=== PATIENT | female | born 2000 | race American Indian/Alaskan Native ===

== ENCOUNTER 2020-08-24 14:03 | Outpatient (CLI) | payer MEDICAID ==
[2020-08-24] MEDS ORDERED: LACTATED RINGERS 500 ML IV ONE (15:10)
[2020-08-24 15:35] LABS: Basophils % (Auto) 0.4 % (0.0-1.8); Eosinophils # (Auto) 0.1 K/mm3 (0.0-0.4); Eosinophils % (Auto) 1.3 % (0.0-4.3); Hematocrit 33.6 % (30.3-42.9); Lymphocytes # (Auto) 2.1 K/mm3 (1.2-5.4); Lymphocytes % (Auto) 24.6 % (13.4-35.0); Mean Corpuscular HGB Conc 33 % (30-34); Mean Corpuscular Volume 84 fl (79-97); Monocytes # (Auto) 0.8 K/mm3 (0.0-0.8); Monocytes % (Auto) 9.5 % (0.0-7.3); Platelet Count 286 K/mm3 (140-440); Red Cell Distribution Width 14.3 % (13.2-15.2)
[2020-08-24 15:36] LABS: Bacteria,Urine 1+ /HPF (Negative); Bilirubin,Urine NEG (Negative); Blood,Urine NEG (Negative); Color,Urine Amber (Yellow); Mucus,Urine 3+ /HPF; Urobilinogen,Urine < 2.0 mg/dL (<2.0)
[2020-08-24 16:12] LABS: Alanine Aminotransferase 6 units/L (7-56); Albumin 3.6 g/dL (3.9-5); Blood Urea Nitrogen 5 mg/dL (7-17); Calcium 9.2 mg/dL (8.4-10.2); Hemolysis Index 5
[2020-08-24 16:13] LABS: BUN/Creatinine Ratio 10
[2020-08-24] MEDS ORDERED: ceFAZolin/STERILE WATER 2 GM/20 ML SYRINGE IV NR (17:00)
[2020-08-24 17:07] VITALS: BP 92/55
[2020-08-24] MEDS ORDERED: LACTATED RINGERS 1,000 ML IV ONE (17:31)
== END 2020-08-24 17:58 | disposition home or self-care (01) ==
LOC: TRG 14:03 → APU 14:10 → TRG 17:58
PROVIDERS: ATTEND Obstetrics & Gynecology
DX: O16.3 Unspecified maternal hypertension, third trimester (principal); Z3A.29 29 weeks gestation of pregnancy
CPT/HCPCS: 36415; 59025; 80053; 81001; 85025; 87076; 87086; 87186; 96365; 96366; J0690; J7120; 96360; 96374

== ENCOUNTER 2020-10-07 15:37 | Observation (INO) | payer MEDICAID ==
[2020-10-07] MEDS ORDERED: LACTATED RINGERS 500 ML IV ONE (16:01)
[2020-10-07] MEDS ORDERED: LACTATED RINGERS 1,000 ML IV ONE (16:33)
[2020-10-07 16:44] LABS: Basophils # (Auto) 0.1 K/mm3 (0.0-0.1); Basophils % (Auto) 0.8 % (0.0-1.8); Eosinophils # (Auto) 0.1 K/mm3 (0.0-0.4); Eosinophils % (Auto) 0.7 % (0.0-4.3); Hematocrit 32.8 % (30.3-42.9); Hemoglobin 10.9 gm/dl (10.1-14.3); Lymphocytes # (Auto) 1.9 K/mm3 (1.2-5.4); Lymphocytes % (Auto) 18.5 % (13.4-35.0); Mean Corpuscular HGB Conc 33 % (30-34); Mean Corpuscular Volume 79 fl (79-97); Monocytes # (Auto) 1.2 K/mm3 (0.0-0.8); Monocytes % (Auto) 11.5 % (0.0-7.3); Platelet Count 307 K/mm3 (140-440); Red Blood Count 4.14 M/mm3 (3.65-5.03); Red Cell Distribution Width 14.9 % (13.2-15.2)
[2020-10-07 17:01] LABS: Alanine Aminotransferase 6 units/L (7-56); Albumin 3.8 g/dL (3.9-5); BUN/Creatinine Ratio 8; Blood Urea Nitrogen 4 mg/dL (7-17); Calcium 9.3 mg/dL (8.4-10.2); Hemolysis Index 1
[2020-10-07 18:01] LABS: Bilirubin,Urine NEG (Negative); Blood,Urine MOD (Negative); Color,Urine Yellow (Yellow); Mucus,Urine FEW /HPF; Urobilinogen,Urine < 2.0 mg/dL (<2.0)
--- NOTE | 2020-10-07 18:39 | Ultrasound Report ---
ULTRASOUND OBSTETRIC LIMITED ULTRASOUND BIOPHYSICAL PROFILE INDICATION / CLINICAL INFORMATION: BPP. Clinical Gestational Age (GA): 35.3 weeks.days COMPARISON: None available. FINDINGS: BREATHING MOVEMENT = 0 GROSS BODY MOVEMENT = 2 TONE = 2 QUALITATIVE AMNIOTIC FLUID VOLUME = 2 TOTAL BIOPHYSICAL SCORE = 8/8 HEART RATE (beats per minute): 142 AMNIOTIC FLUID INDEX (cm) = 7.5 (normal = 7-24 cm) PRESENTATION: Cephalic. ADDITIONAL FINDINGS: Right lateral placenta with grade 1 appearance. IMPRESSION: 1. Biophysical Score = 6/8. Recommend close continued follow-up and further evaluation as shady bellamy. 2. Additional findings as above. Signer Name: Levon Marrero MD Signed: 10/07/2020 6:35 PM Workstation Name: [id number]
--- NOTE | 2020-10-07 18:40 | Ultrasound Report ---
ULTRASOUND OBSTETRIC LIMITED ULTRASOUND BIOPHYSICAL PROFILE INDICATION / CLINICAL INFORMATION: BPP. Clinical Gestational Age (GA): 35.3 weeks.days COMPARISON: None available. FINDINGS: BREATHING MOVEMENT = 0 GROSS BODY MOVEMENT = 2 TONE = 2 QUALITATIVE AMNIOTIC FLUID VOLUME = 2 TOTAL BIOPHYSICAL SCORE = 8/8 HEART RATE (beats per minute): 142 AMNIOTIC FLUID INDEX (cm) = 7.5 (normal = 7-24 cm) PRESENTATION: Cephalic. ADDITIONAL FINDINGS: Right lateral placenta with grade 1 appearance. IMPRESSION: 1. Biophysical Score = 6/8. Recommend close continued follow-up and further evaluation as shady bellamy. 2. Additional findings as above. Signer Name: Levon Marrero MD Signed: 10/07/2020 6:36 PM Workstation Name: [id number]
[2020-10-07] MEDS ORDERED: DOCUSATE SODIUM 100 MG CAP PO PRN (18:50)
[2020-10-07] MEDS ORDERED: ACETAMINOPHEN 325 MG TAB PO PRN (18:50)
--- NOTE | 2020-10-07 19:03 | History and Physical Report ---
History of Present Illness Date of examination: 10/07/20 Date of admission: 10/07/2020 Chief complaint: Pelvic pain History of present illness: 19 year old female presents to L&D with complaint of pelvic pain starting today, felt in lower pelvis and right lower back. Patient denies contractions. She denies falls or abdominal trauma. She denies urinary frequency or dysuria or leaking of water or vaginal bleeding. No fever, chills, malaise, or N/V. Denies any known exposure to coronavirus. Patient reports active movement. Patient states she receives care at [facility] but no records are available. EDC 11/08/2020 (self reported by patient). Patient denies any complications during the . 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: chlamydia (history last year, treated and cured), trichomonas (history of last year, treated and cured) Family/Genetic History: none Social history: no significant social history - Obstetrical History Expected Date of Delivery: 11/08/20 Actual Gestation: 35 Week(s) 3 Day(s) : 2 Para: 1 Hx # Term Pregnancies: 1 Number of Pregnancies: 0 Spontaneous Abortions: 0 Induced : 0 Number of Living Children: 1 Medications and Allergies Allergies Allergy/AdvReac Type Severity Reaction Status Date / Time No Known Allergies Allergy Unverified 08/24/20 15:10 Active Meds: Active Medications Acetaminophen (Acetaminophen 325 Mg Tab) 650 mg PO Q4H PRN PRN Reason: Pain MILD(1-3)/Fever >100.5/PORTILLO Docusate Sodium (Docusate Sodium 100 Mg Cap) 100 mg PO Q12H PRN PRN Reason: Constipation Ceftriaxone Sodium (Rocephin/Ns 1 Gm/50 Ml) 1 gm in 50 mls @ 100 mls/hr IV Q24H STACY; Protocol Multivitamins/Iron/Calcium ( Nqp79-Gm Fumarate-Folic Acid Vit Tab) 1 each PO QDAY STACY Review of Systems All systems: negative (lower abdominal pain and lower back pain) - Vital Signs Vital signs: Vital Signs Pulse BP 127 H 125/70 10/07/20 16:00 10/07/20 16:00 Temp Pulse Resp BP Pulse Ox 99 F 112 H 125/70 99 10/07/20 16:02 10/07/20 17:21 10/07/20 16:00 10/07/20 17:21 Urinalysis slightly cloudy and positive for ketones, protein, and 26 wbc/hpf. BPP 6/8 (2 off for breathing); MEAGAN 7.5 cm. - Physical Exam Abdomen: Positive: normal appearance, soft. Negative: distention, tenderness, guarding, rigidity Genitourinary (Female): Positive: normal external genitalia, normal perenium. Negative: perineal/vulvar lesions Vagina: Positive: normal moisture Uterus: Positive: enlarged. Negative: tender Anus/Rectum: Positive: normal perianal skin Extremities: Positive: normal. Negative: tenderness, edema - Obstetrical FHR: category 1 Uterine Contraction Monitor Mode: External Cervical Dilatation: 0 Cervical Effacement Percentage: 0 station: high Uterine Contraction Pattern: Absent Results Result Diagrams: 10/07/20 16:27 10/07/20 16:27 Abnormal lab results 10/07/20 10/07/20 10/07/20 Range/Units 16:27 16:27 Unknown MCH 26 L (28-32) pg [place] % (Auto) 11.5 H (0.0-7.3) % [place] # (Auto) 1.2 H (0.0-0.8) K/mm3 BUN 4 L (7-17) mg/dL Creatinine 0.5 L (0.6-1.2) mg/dL ALT 6 L (7-56) units/L Alkaline Phosphatase 151 H (35-129) units/L Albumin 3.8 L (3.9-5) g/dL Urine WBC (Auto) 26.0 H (0.0-6.0) /HPF All other labs normal. Assessment and Plan A: at 35 weeks, 3 days gestation. Pelvic pain. UTI. BPP 6/8 with borderline low MEAGAN. Ketonuria/dehydration. No records available. P: Admit for observation. Continuous EFM. IV hydration. IV Rocephin. Repeat BPP and MEAGAN tomorrow morning. Urine culture; coronavirus test. Request records.
[2020-10-07] MEDS ORDERED: cefTRIAXone/NS 1 GM/50 ML 1 GM/50 ML BAG IV SCH (20:00)
[2020-10-07 23:46] LABS: Amphetamine Screen,Urine PRESUMPTIVE NEGATIVE; Benzodiazepines Screen,Urine PRESUMPTIVE NEGATIVE; Cannabinoid Screen,Urine PRESUMPTIVE POSITIVE; Cocaine Screen,Urine PRESUMPTIVE NEGATIVE; Methadone Screen,Urine PRESUMPTIVE NEGATIVE; Opiate Screen,Urine PRESUMPTIVE NEGATIVE
[2020-10-08] MEDS ORDERED: LACTATED RINGERS 1,000 ML ONE (06:41)
[2020-10-08] MEDS ORDERED: PRENATAL VIT27-FE FUMARATE-FOLIC ACID VIT TAB PO SCH (10:00)
[2020-10-08 10:13] VITALS: BP 101/62
--- NOTE | 2020-10-08 12:50 | Progress Note ---
Assessment and Plan A: at 35 weeks, 4 days gestation. UTI. Pelvic pain resolved. Normal BPP and MEAGAN on US today. Not in labor. Marijuana use. P: Discharge patient home today. Advised patient to continue antibiotics at home; Rx Augmentin 500-125, #14, 1 po BID called to [facility] pharmacy on [address]. Use of medication discussed with patient. Advised patient to drink plenty of water at home and avoid sodas, coffee, tea. Advised patient to count movements daily. Advised patient to stop smoking marijuana and to avoid being around any second hand smoke. Potential effects of marijuana during discussed with patient. Patient states she will stop using. Advised patient to follow up at [facility] office on Friday10/10/20. UTI warning signs discussed with patient. Patient voiced understanding of all instructions. Subjective - Subjective Date of service: 10/08/20 Principal diagnosis: at 35 weeks, 4 days gestation Interval history: Patient was observed overnight and received IV hydration and IV antibiotics. Patient denies fever, chills, flank pain, nausea or vomiting. She states her back pain and pelvic pain have resolved. Patient reports active movement. She denies contractions, VB, or LOF. MEAGAN 10.3 cm; BPP 8/8 on US done this morning. Patient reports: movement normal, no new complaints, no loss of fluid, no vaginal bleeding, no contractions Objective - Vital Signs Vital Signs: Vital Signs - 12hr 10/07/20 10/07/20 10/07/20 23:48 23:53 23:58 Temperature Pulse Rate 104 H 92 H 110 H Respiratory Rate Blood Pressure O2 Sat by Pulse 98 99 98 Oximetry 10/08/20 10/08/20 10/08/20 00:03 00:08 00:13 Temperature Pulse Rate 105 H 108 H 96 H Respiratory Rate Blood Pressure O2 Sat by Pulse 97 99 100 Oximetry 10/08/20 10/08/20 10/08/20 00:17 00:18 00:23 Temperature 97.8 F Pulse Rate 96 H 102 H 97 H Respiratory 16 Rate Blood Pressure 108/58 O2 Sat by Pulse 98 98 Oximetry 10/08/20 10/08/20 10/08/20 00:28 00:34 00:39 Temperature Pulse Rate 97 H 95 H 96 H Respiratory Rate Blood Pressure O2 Sat by Pulse 97 98 97 Oximetry 10/08/20 10/08/20 10/08/20 00:44 00:49 00:54 Temperature Pulse Rate 91 H 104 H 99 H Respiratory Rate Blood Pressure O2 Sat by Pulse 97 96 96 Oximetry 10/08/20 10/08/20 10/08/20 00:59 01:04 01:09 Temperature Pulse Rate 97 H 103 H 88 Respiratory Rate Blood Pressure O2 Sat by Pulse 96 96 97 Oximetry 10/08/20 10/08/20 10/08/20 01:14 01:19 01:24 Temperature Pulse Rate 97 H 97 H 105 H Respiratory Rate Blood Pressure O2 Sat by Pulse 98 97 97 Oximetry 10/08/20 10/08/20 10/08/20 01:29 01:34 01:39 Temperature Pulse Rate 98 H 99 H 95 H Respiratory Rate Blood Pressure O2 Sat by Pulse 97 97 97 Oximetry 10/08/20 10/08/20 10/08/20 01:43 01:44 01:49 Temperature Pulse Rate 103 H 39 L 79 Respiratory Rate Blood Pressure O2 Sat by Pulse 86 94 99 Oximetry 10/08/20 10/08/20 10/08/20 01:54 01:59 03:04 Temperature Pulse Rate 81 76 81 Respiratory Rate Blood Pressure O2 Sat by Pulse 99 99 98 Oximetry 10/08/20 10/08/20 10/08/20 03:09 03:14 03:19 Temperature Pulse Rate 83 82 72 Respiratory Rate Blood Pressure O2 Sat by Pulse 98 98 99 Oximetry 10/08/20 10/08/20 10/08/20 03:24 03:29 03:34 Temperature Pulse Rate 75 75 78 Respiratory Rate Blood Pressure O2 Sat by Pulse 100 100 98 Oximetry 10/08/20 10/08/20 10/08/20 03:39 03:44 03:49 Temperature Pulse Rate 77 83 69 Respiratory Rate Blood Pressure O2 Sat by Pulse 99 98 99 Oximetry 10/08/20 10/08/20 10/08/20 03:54 03:59 04:04 Temperature Pulse Rate 90 74 82 Respiratory Rate Blood Pressure O2 Sat by Pulse 98 100 99 Oximetry 10/08/20 10/08/20 10/08/20 04:09 04:14 04:19 Temperature Pulse Rate 88 79 85 Respiratory Rate Blood Pressure O2 Sat by Pulse 93 98 99 Oximetry 10/08/20 10/08/20 10/08/20 04:24 04:29 04:34 Temperature Pulse Rate 85 88 86 Respiratory Rate Blood Pressure O2 Sat by Pulse 97 97 98 Oximetry 10/08/20 10/08/20 10/08/20 04:39 04:44 04:49 Temperature Pulse Rate 81 84 98 H Respiratory Rate Blood Pressure O2 Sat by Pulse 98 98 97 Oximetry 10/08/20 10/08/20 10/08/20 04:54 04:59 05:14 Temperature Pulse Rate 86 79 115 H Respiratory Rate Blood Pressure O2 Sat by Pulse 98 97 99 Oximetry 10/08/20 10/08/20 10/08/20 05:19 05:24 05:29 Temperature Pulse Rate 88 79 78 Respiratory Rate Blood Pressure O2 Sat by Pulse 100 99 99 Oximetry 10/08/20 10/08/20 10/08/20 05:34 05:39 05:40 Temperature Pulse Rate 81 69 74 Respiratory Rate Blood Pressure O2 Sat by Pulse 99 97 88 Oximetry 10/08/20 10/08/20 10/08/20 05:44 05:49 05:54 Temperature Pulse Rate 85 88 77 Respiratory Rate Blood Pressure O2 Sat by Pulse 99 99 100 Oximetry 10/08/20 10/08/20 10/08/20 05:59 06:04 06:09 Temperature Pulse Rate 70 75 82 Respiratory Rate Blood Pressure O2 Sat by Pulse 99 99 98 Oximetry 10/08/20 10/08/20 10/08/20 06:14 06:19 06:24 Temperature Pulse Rate 75 83 84 Respiratory Rate Blood Pressure O2 Sat by Pulse 98 98 98 Oximetry 10/08/20 10/08/20 10/08/20 06:29 06:34 06:36 Temperature Pulse Rate 74 80 80 Respiratory Rate Blood Pressure O2 Sat by Pulse 98 93 87 Oximetry 10/08/20 10/08/20 10/08/20 06:39 06:44 06:49 Temperature Pulse Rate 73 68 66 Respiratory Rate Blood Pressure O2 Sat by Pulse 99 98 98 Oximetry 10/08/20 10/08/20 10/08/20 06:54 06:59 07:04 Temperature Pulse Rate 73 79 78 Respiratory Rate Blood Pressure O2 Sat by Pulse 98 99 97 Oximetry 10/08/20 10/08/20 10/08/20 07:09 07:14 07:19 Temperature Pulse Rate 76 74 72 Respiratory Rate Blood Pressure O2 Sat by Pulse 97 98 96 Oximetry 10/08/20 10/08/20 10/08/20 07:24 07:29 07:34 Temperature Pulse Rate 94 H 74 78 Respiratory Rate Blood Pressure O2 Sat by Pulse 98 98 99 Oximetry 10/08/20 10/08/20 10/08/20 07:39 07:44 07:49 Temperature Pulse Rate 76 73 71 Respiratory Rate Blood Pressure O2 Sat by Pulse 98 99 98 Oximetry 10/08/20 10/08/20 10/08/20 07:54 07:59 08:04 Temperature Pulse Rate 84 82 94 H Respiratory Rate Blood Pressure O2 Sat by Pulse 98 98 93 Oximetry 10/08/20 10/08/20 10/08/20 08:09 08:14 08:19 Temperature Pulse Rate 72 74 67 Respiratory Rate Blood Pressure O2 Sat by Pulse 100 99 99 Oximetry 10/08/20 10/08/20 10/08/20 08:24 08:29 08:34 Temperature Pulse Rate 68 78 92 H Respiratory Rate Blood Pressure O2 Sat by Pulse 99 99 99 Oximetry 10/08/20 10/08/20 10/08/20 08:46 08:51 08:56 Temperature Pulse Rate 97 H 97 H 95 H Respiratory Rate Blood Pressure O2 Sat by Pulse 95 100 99 Oximetry 10/08/20 10/08/20 10/08/20 09:01 09:06 09:11 Temperature Pulse Rate 81 113 H 91 H Respiratory Rate Blood Pressure O2 Sat by Pulse 100 99 99 Oximetry 10/08/20 10/08/20 10/08/20 09:15 09:16 09:21 Temperature Pulse Rate 96 H 92 H 93 H Respiratory Rate Blood Pressure 110/65 O2 Sat by Pulse 98 100 Oximetry 10/08/20 10/08/20 10/08/20 09:26 09:31 09:36 Temperature Pulse Rate 81 100 H 107 H Respiratory Rate Blood Pressure O2 Sat by Pulse 100 99 99 Oximetry 10/08/20 10/08/20 10/08/20 09:41 09:46 09:51 Temperature Pulse Rate 104 H 94 H 88 Respiratory Rate Blood Pressure O2 Sat by Pulse 99 97 99 Oximetry 10/08/20 10/08/20 10/08/20 09:56 10:01 10:06 Temperature Pulse Rate 111 H 114 H 118 H Respiratory Rate Blood Pressure O2 Sat by Pulse 98 99 99 Oximetry 10/08/20 10/08/20 10/08/20 10:11 10:12 10:16 Temperature Pulse Rate 111 H 115 H 88 Respiratory Rate Blood Pressure 101/62 O2 Sat by Pulse 98 99 Oximetry 10/08/20 10/08/20 10/08/20 10:21 10:26 10:31 Temperature Pulse Rate 95 H 87 97 H Respiratory Rate Blood Pressure O2 Sat by Pulse 99 100 99 Oximetry 10/08/20 10/08/20 10/08/20 10:36 10:41 10:46 Temperature Pulse Rate 98 H 93 H 117 H Respiratory Rate Blood Pressure O2 Sat by Pulse 100 99 97 Oximetry 10/08/20 10/08/20 10/08/20 10:51 10:56 11:01 Temperature Pulse Rate 103 H 105 H 105 H Respiratory Rate Blood Pressure O2 Sat by Pulse 99 100 98 Oximetry 10/08/20 10/08/20 10/08/20 11:06 11:11 11:16 Temperature Pulse Rate 107 H 89 84 Respiratory Rate Blood Pressure O2 Sat by Pulse 99 99 98 Oximetry 10/08/20 10/08/20 10/08/20 11:21 11:26 11:31 Temperature Pulse Rate 123 H 110 H 110 H Respiratory Rate Blood Pressure O2 Sat by Pulse 98 98 99 Oximetry - Exam Narrative Exam: MEAGAN 10.3. BPP 8/8. Reactive NST. Drug screen positive for marijuana. Abdomen: Present: normal appearance, soft. Absent: distention, tenderness, guarding, rigidity Uterus: Present: normal, fundal height above umbilicus. Absent: tenderness FHR: category 1 Uterine Contraction Pattern: Absent Extremities: normal - Labs Labs: Abnormal Labs 10/07/20 10/07/20 10/07/20 16:27 16:27 Unknown MCH 26 L [place] % (Auto) 11.5 H [place] # (Auto) 1.2 H BUN 4 L Creatinine 0.5 L ALT 6 L Alkaline Phosphatase 151 H Albumin 3.8 L Urine WBC (Auto) 26.0 H Laboratory Results - last 24 hr 10/07/20 10/07/20 10/07/20 16:27 16:27 23:00 WBC 10.0 RBC 4.14 Hgb 10.9 Hct 32.8 MCV 79 MCH 26 L MCHC 33 RDW 14.9 Plt Count 307 Lymph % (Auto) 18.5 [place] % (Auto) 11.5 H Eos % (Auto) 0.7 Baso % (Auto) 0.8 Lymph # (Auto) 1.9 [place] # (Auto) 1.2 H Eos # (Auto) 0.1 Baso # (Auto) 0.1 Seg Neutrophils % 68.5 Seg Neutrophils # 6.9 Sodium 139 Potassium 3.7 Chloride 102.8 Carbon Dioxide 23 Anion Gap 17 BUN 4 L Creatinine 0.5 L Estimated GFR > 60 BUN/Creatinine Ratio 8 Glucose 81 Calcium 9.3 Total Bilirubin 0.70 AST 12 ALT 6 L Alkaline Phosphatase 151 H Total Protein 7.5 Albumin 3.8 L Albumin/Globulin Ratio 1.0 Urine Color Urine Turbidity Urine pH Ur Specific [place] Urine Protein Urine Glucose (UA) Urine Ketones Urine Blood Urine Nitrite Urine Bilirubin Urine Urobilinogen Ur Leukocyte Esterase Urine WBC (Auto) Urine RBC (Auto) U Epithel Cells (Auto) Urine Mucus Urine Opiates Screen Presumptive negative Urine Methadone Screen Presumptive negative Ur Barbiturates Screen Presumptive negative Ur Phencyclidine Scrn Presumptive negative Ur Amphetamines Screen Presumptive negative U Benzodiazepines Scrn Presumptive negative Urine Cocaine Screen Presumptive negative U Marijuana (THC) Screen Presumptive positive Drugs of Abuse Note Disclamer 10/07/20 Unknown WBC RBC Hgb Hct MCV MCH MCHC RDW Plt Count Lymph % (Auto) [place] % (Auto) Eos % (Auto) Baso % (Auto) Lymph # (Auto) [place] # (Auto) Eos # (Auto) Baso # (Auto) Seg Neutrophils % Seg Neutrophils # Sodium Potassium Chloride Carbon Dioxide Anion Gap BUN Creatinine Estimated GFR BUN/Creatinine Ratio Glucose Calcium Total Bilirubin AST ALT Alkaline Phosphatase Total Protein Albumin Albumin/Globulin Ratio Urine Color Yellow Urine Turbidity Slightly-cloudy Urine pH 7.0 Ur Specific [place] 1.005 Urine Protein 100 mg/dl Urine Glucose (UA) Neg Urine Ketones 80 Urine Blood Mod Urine Nitrite Neg Urine Bilirubin Neg Urine Urobilinogen < 2.0 Ur Leukocyte Esterase Lg Urine WBC (Auto) 26.0 H Urine RBC (Auto) 7.0 U Epithel Cells (Auto) 4.0 Urine Mucus Few Urine Opiates Screen Urine Methadone Screen Ur Barbiturates Screen Ur Phencyclidine Scrn Ur Amphetamines Screen U Benzodiazepines Scrn Urine Cocaine Screen U Marijuana (THC) Screen Drugs of Abuse Note
--- NOTE | 2020-10-08 12:59 | Discharge Summary ---
Providers - Providers Date of Admission: 10/07/20 18:50 Date of discharge: 10/08/20 Attending physician: DAVID ESPINOSA MD Primary care physician: DAVID ESPINOSA MD Hospitalization Reason for admission: other (UTI, BPP 6/8, borderline low MEAGAN, pelvic pain) Discharge diagnosis: other ( at 35 weeks, 4 days gestation; pelvic pain resolved, normal follow up US) Pertinent studies: Labs, ultrasound Hospital course: Stable hospital course Condition at discharge: Good Disposition: DC-01 TO HOME OR SELFCARE Plan - Provider Discharge Summary Activity: routine Diet: routine Additional instructions: Count movements daily. Drink plenty of water. Take antibiotic (Augmentin) that has been called in to [facility] pharmacy for you. Follow up at [facility] office on 10/10/20. - Follow up plan Follow up: DAVID ESPINOSA MD [Primary Care Provider] - 48 Hours Forms: [facility] Discharge Summary, Work/School Excuse Out Patient
--- NOTE | 2020-10-08 15:31 | Ultrasound Report ---
ULTRASOUND BIOPHYSICAL PROFILE INDICATION / CLINICAL INFORMATION: MEAGAN. COMPARISON: 10/07/2020 FINDINGS: BREATHING MOVEMENT = 2 GROSS BODY MOVEMENT = 2 TONE = 2 QUALITATIVE AMNIOTIC FLUID VOLUME = 2 TOTAL BIOPHYSICAL SCORE = 8/8 AMNIOTIC FLUID INDEX (cm) = 12.3 cm PRESENTATION: Cephalic. HEART RATE (beats per minute): 46 IMPRESSION: 1. biophysical profile = 03/04 2. MEAGAN measures 12.3 cm, within normal limits. Signer Name: Wilbur Bright MD Signed: 10/08/2020 3:27 PM Workstation Name: [id number]
== END 2020-10-08 12:45 | disposition home or self-care (01) ==
LOC: TRG 15:37 → APU 15:38 → LD 18:50 → TRG 18:50
PROVIDERS: ADMIT Obstetrics & Gynecology; ATTEND Obstetrics & Gynecology
DX: O23.43 Unspecified infection of urinary tract in pregnancy, third trimester (principal); R10.2 Pelvic and perineal pain; O99.213 Obesity complicating pregnancy, third trimester; O99.323 Drug use complicating pregnancy, third trimester; F12.90 Cannabis use, unspecified, uncomplicated; Z3A.35 35 weeks gestation of pregnancy; Z79.899 Other long term (current) drug therapy
CPT/HCPCS: 36415; 59025; 76815; 76819; 80053; 80307; 81001; 85025; 87086; 96360; 96361; 96365; G0378; J0696; J7120

== ENCOUNTER 2020-11-11 20:00 | Inpatient (IN) | payer MEDICAID ==
[2020-11-11] MEDS ORDERED: NalbUPHINE 10 MG/1 ML INJ IV PRN (20:54)
[2020-11-11] MEDS ORDERED: MINERAL OIL 30 ML ORAL LIQD PO PRN (20:54)
[2020-11-11] MEDS ORDERED: fentaNYL 100 MCG/2 ML INJ IV PRN (20:54)
[2020-11-11] MEDS ORDERED: TERBUTALINE 1 MG/1 ML INJ SUB-Q PRN (20:54)
[2020-11-11] MEDS ORDERED: ePHEDrine SULFATE 50 MG/1 ML INJ IV PRN (20:54)
[2020-11-11] MEDS ORDERED: OXYTOCIN DRIP 30 UNITS/500 ML BAG IV SCH ×2 (21:00)
[2020-11-11 21:45] LABS: Hematocrit 34.7 % (30.3-42.9); Hemoglobin 10.9 gm/dl (10.1-14.3); Mean Corpuscular HGB Conc 32 % (30-34); Mean Corpuscular Volume 78 fl (79-97); Platelet Count 344 K/mm3 (140-440); Red Blood Count 4.42 M/mm3 (3.65-5.03); Red Cell Distribution Width 16.6 % (13.2-15.2)
[2020-11-11] MEDS ORDERED: LIDOCAINE (2%) 20 MG/1 ML VIAL 20 ML MDV INFILTRATI ONE (21:54)
[2020-11-11] MEDS: LACTATED RINGERS 1,000 ML IV SCH (22:00)
[2020-11-11] MEDS ORDERED: AMPICILLIN/NS 2 GM/100 ML 2 GM/100 ML BAG IV ONE (23:08)
[2020-11-12] MEDS ORDERED: NALOXONE 2 MG/2 ML INJ IV PRN ×2 (00:29→01:08)
[2020-11-12] MEDS ORDERED: ePHEDrine SULFATE 50 MG/1 ML INJ IV PRN ×2 (00:29→01:08)
--- NOTE | 2020-11-12 00:29 | Anesthesia Consultation ---
Anesthesia Consult and Med Hx Date of service: 11/12/20 - Airway Anesthetic Teeth Evaluation: Good ROM Head & Neck: Adequate Mental/Hyoid Distance: Adequate Mallampati Class: Class II Intubation Access Assessment: Probably Good - Pulmonary Exam CTA: Yes - Cardiac Exam Cardiac Exam: RRR - Pre-Operative Health Status ASA Pre-Surgery Classification: ASA2 Proposed Anesthetic Plan: Epidural - Pulmonary Hx Smoking: No Hx Asthma: No Hx Respiratory Symptoms: No SOB: No COPD: No Home Oxygen Therapy: No Hx Pneumonia: No Hx Sleep Apnea: No - Cardiovascular System Hx Hypertension: No Hx Coronary Artery Disease: No Hx Heart Attack/AMI: No Hx Angina: No Hx Percutaneous Transluminal Coronary Angioplasty (PTCA): No Hx Cardia Arrhythmia: No Hx Pacemaker: No Hx Internal Defibrillator: No Hx Valvular Heart Disease: No Hx Heart Murmur: No Hx Peripheral Vascular Disease: No - Central Nervous System Hx Neuromuscular Disorder: No Hx Seizures: No CVA: No Hx Back Pain: No Hx Psychiatric Problems: No - Gastrointestinal Hx Ulcer: No Hx Gastroesophageal Reflux Disease: No - Endocrine Hx Renal Disease: No Hx End Stage Renal Disease: No Hx Cirrhosis: No Hx Liver Disease: No Hx Insulin Dependent Diabetes: No Hx Non-Insulin Dependent Diabetes: No Hx Thyroid Disease: No Hx Hypothyroidism: No Hx Hyperthyroidism: No - Hematic Hx Anemia: No Hx Sickle Cell Disease: No - Other Systems Hx Alcohol Use: No Hx Substance Use: No Hx Cancer: No Hx Obesity: Yes
[2020-11-12] MEDS ORDERED: fentaNYL-BUPIV 2 MCG/ML-0.125% 200 MCG/100 ML BAG EPIDURAL SCH ×2 (01:00→02:00)
--- NOTE | 2020-11-12 01:06 | Progress Note ---
Labor Epidural - Labor Epidural Start Time: 00:36 Stop Time: 00:48 Performed by:: JULIO ANN Procedure: Patient is requesting a laboring epidural for laboring pain. Patient IDed, H&P reviewed, all questions and concerns were answered, and consent was signed. Timeout was performed at bedside. Patient in sitting position. Sterile prep and drape was performed. [3] ml of 1% lidocaine skin wheal at L[3]- L [4]. 18- gauge Tuohy epidural needle was advanced to loss of resistance with saline technique 8cm. Negative CSF negative blood. Epidural catheter advanced to [12] centimeters. [NEGATIVE] Aspiration [NEGATIVE] test dose. Sterile dressing applied. Patient tolerated procedure.
[2020-11-12] MEDS: LACTATED RINGERS 1,000 ML IV SCH (01:10)
[2020-11-12] MEDS ORDERED: LIDOCAINE (2%) 20 MG/1 ML VIAL 20 ML MDV INFILTRATI ONE (01:29)
--- NOTE | 2020-11-12 02:39 | History and Physical Report ---
History of Present Illness Date of examination: 11/12/20 Date of admission: 11/11/20 20:54 Chief complaint: contractions History of present illness: at 40.3wks on admission 11/11/20 by LMP c/w U/S and care at [facility]. Pt c/o having ctx, and later SROM after she was admitted. Denies headache. Admits to movement. Rh positive and Rubella NON-immune noted in prental records. 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: chlamydia, trichomonas Family/Genetic History: none Social history: no significant social history - Obstetrical History Expected Date of Delivery: 11/08/20 Actual Gestation: 40 Week(s) 4 Day(s) : 2 Hx # Term Pregnancies: 1 Number of Living Children: 1 Medications and Allergies Allergies Allergy/AdvReac Type Severity Reaction Status Date / Time No Known Allergies Allergy Unverified 08/24/20 15:10 Active Meds: Active Medications Ephedrine Sulfate (Ephedrine Sulfate 50 Mg/1 Ml Inj) 10 mg IV Q2M PRN PRN Reason: Hypotension Fentanyl (Fentanyl 100 Mcg/2 Ml Inj) 100 mcg IV Q2H PRN PRN Reason: Pain,Severe (7-10) LABOR PAIN Last Admin: 11/11/20 23:48 Dose: 100 mcg Documented by: Oxytocin/Sodium Chloride (Pitocin/Ns 30 Unit/500ml) 30 units in 500 mls @ 2 mls/hr IV TITR STACY; Protocol Lactated Ringer's (Lactated Ringers) 1,000 mls @ 125 mls/hr IV DIRECT STACY Last Admin: 11/12/20 01:10 Dose: 125 mls/hr Documented by: Oxytocin/Sodium Chloride (Pitocin/Ns 30 Unit/500ml) 30 units in 500 mls @ 40 mls/hr IV TITR STACY; Protocol Fentanyl/Bupivacaine/Sodium Chlor (Fentanyl-Bupiv 2 Mcg/Ml-0.125%) 200 mcg in 100 mls @ 12 mls/hr EPIDURAL TITR STACY; Protocol Mineral Oil (Mineral Oil 30 Ml Oral Liqd) 30 ml PO QHS PRN PRN Reason: Constipation Last Admin: 11/12/20 02:30 Dose: 30 ml Documented by: Nalbuphine HCl (Nalbuphine 10 Mg/1 Ml Inj) 10 mg IV Q2H PRN PRN Reason: Pain, Moderate (4-6) Naloxone HCl (Naloxone 2 Mg/2 Ml Inj) 0.2 mg IV Q5M PRN PRN Reason: Respiratory sedation Terbutaline Sulfate (Terbutaline 1 Mg/1 Ml Inj) 0.25 mg SUB-Q ONCE PRN PRN Reason: Hyperstimulation/Hypertonicity Review of Systems All systems: negative (ctx) - Vital Signs Vital signs: Vital Signs Pulse Resp BP 116 H 12 130/85 11/11/20 20:22 11/11/20 20:22 11/11/20 20:22 Temp Pulse Resp BP Pulse Ox 98.2 F 100 H 20 107/57 99 11/11/20 23:51 11/12/20 02:31 11/11/20 23:51 11/12/20 02:31 11/12/20 02:28 - Physical Exam Breasts: Positive: deferred Cardiovascular: Regular rate Abdomen: Positive: normal appearance (Obese), soft Vulva: both: normal Uterus: Positive: enlarged (non-tender) Anus/Rectum: Positive: normal perianal skin Extremities: Positive: normal - Obstetrical FHR: category 1 Uterine Contraction Monitor Mode: External Cervical Dilatation: 3.5 (per triage nurse on admit) Cervical Effacement Percentage: 70 station: -2 Uterine Contraction Pattern: Regular Results Result Diagrams: 11/11/20 21:10 Abnormal lab results 11/11/20 Range/Units 21:10 MCV 78 L (79-97) fl MCH 25 L (28-32) pg RDW 16.6 H (13.2-15.2) % All other labs normal. Assessment and Plan Term , post dates in latent labor 1. Obtained records and pt needs rubella vaccine 2. May have IV pain med or epidural 3. Expect Plan of care already discussed and consent obtained.
--- NOTE | 2020-11-12 02:51 | Procedure Note ---
OB Delivery Note - Delivery Date of Delivery: 11/12/20 Surgeon: BISHNU BROOKS Estimated blood loss: 200cc - Vaginal Delivery presentation: vertex Delivery position: OA Delivery induction: none Delivery monitor: external FHT, external uterine Route of delivery: Delivery placenta: spontaneous Episiotomy: none Delivery laceration: 1st degree (x4 to bilateral labia) Delivery repair: chromic Anesthesia: local Delivery comments: Called to delivery room by nurse. pt thrashing in pain and ready to push and unable to get epidural at this time. SAVD of viable male uncomplicated with mom moving upwards in bed and not thrashing side to side with nurses supporting lower legs. Pt sustained multiple 1st degree lacerations to bilateral labia and same repaired with 2-0 chromic running locked suture and local lidocaine anesthetic. Small 1cm cyst noted to right labia noted at delivery and pt told. Spontaneous delivery of intact placenta with 3v cord. Bimanual exam with fundus firm. Mom and infant doing well. - A at 1 minute: 8 at 5 minutes: 9 Infant Gender: Male (Wt. 3455g; clear amniotic fluid. Delivered at 01:51am)
[2020-11-12] MEDS ORDERED: MAGNESIUM HYDROXIDE (MOM) ORAL LIQD UDC PO PRN (05:01)
[2020-11-12] MEDS ORDERED: PROMETHAZINE 25 MG TAB PO PRN (05:01)
[2020-11-12] MEDS ORDERED: WITCH HAZEL/ GLYCERIN PAD TP PRN (05:01)
[2020-11-12] MEDS ORDERED: ONDANSETRON 4 MG/2 ML INJ IV PRN (05:01)
[2020-11-12] MEDS ORDERED: diphenhydrAMINE 25 MG CAP PO PRN (05:01)
[2020-11-12] MEDS ORDERED: oxyCODONE /ACETAMINOPHEN 5-325MG TAB PO PRN (05:01)
[2020-11-12] MEDS ORDERED: LANOLIN/ZINC/DIMETHICONE (LANSINOH) 7 GM TP PRN (05:01)
[2020-11-12] MEDS: IBUPROFEN 600 MG TAB PO SCH ×3 (06:14→18:13)
--- NOTE | 2020-11-12 13:42 | Post Anesthesia Evaluation ---
- Post Anesthesia Evaluation Patient Participated: Yes Airway Patent: Yes Stable Respiratory Function: Yes Nausea/Vomiting: No Temp > 96.8F: Yes Pain Manageable: Yes Adequeate Hydration: Yes Anesthesia Complications: No Block Receding Appropriately: Yes Patient on Ventilator: No
[2020-11-12 16:00] LABS: Hematocrit 29.1 % (30.3-42.9); Hemoglobin 9.3 gm/dl (10.1-14.3)
[2020-11-12] MEDS: FERROUS SULFATE 325 MG TAB PO SCH (21:20)
[2020-11-13] MEDS: IBUPROFEN 600 MG TAB PO SCH ×3 (02:31→12:00)
[2020-11-13] MEDS: FERROUS SULFATE 325 MG TAB PO SCH (09:24)
--- NOTE | 2020-11-13 11:48 | Progress Note ---
Assessment and Plan A: PP Day #1 Asymptomatic Anemia P: Follow Routine Orders Continue PO FeSO4 Depo Provera 150mg IM x 1 dose D/C Home today RTO in 6 Weeks Subjective - Subjective Date of service: 11/13/20 Patient reports: appetite normal, voiding normally, pain well controlled, flatus, bowel movement, ambulating normally : doing well, bottle feeding (and ) Objective - Vital Signs Latest vital signs: Vital Signs Temp Pulse Resp BP Pulse Ox 11/13/20 07:34 97.8 F 81 18 116/49 97 11/13/20 06:30 18 11/13/20 05:35 18 11/13/20 02:31 18 11/13/20 00:37 97.9 F 86 15 113/69 98 11/12/20 16:23 98.1 F 70 20 107/51 97 11/12/20 12:53 98.1 F 100 H 18 115/72 98 Intake and Output 11/12/20 11/13/20 11/13/20 22:59 06:59 14:59 Intake Total 840 120 Balance 840 120 Intake: Oral 360 120 Intake, Free Water 480 Other: Total, Intake Amount 360 120 # Voids Void 1 2 - Exam Breasts: Present: normal Cardiovascular: Present: Regular rate Lungs: Present: Clear to auscultation, Normal air movement Abdomen: Present: normal appearance, soft, normal bowel sounds Uterus: Present: normal, firm, fundal height below umbilicus Extremities: Present: normal - Labs Labs: Abnormal lab results 11/12/20 Range/Units 15:26 Hgb 9.3 L (10.1-14.3) gm/dl Hct 29.1 L (30.3-42.9) %
--- NOTE | 2020-11-13 11:50 | Discharge Summary ---
Providers - Providers Date of Admission: 11/11/20 20:54 Date of discharge: 11/13/20 Attending physician: BISHNU BROOKS Primary care physician: BISHNU BROOKS Hospitalization Reason for admission: active labor Delivery: Episiotomy: none Laceration: 1st degree Other procedures: none complications: none Discharge diagnosis: IUP at term delivered baby: male Condition at discharge: Good Disposition: DC-01 TO HOME OR SELFCARE Plan - Provider Discharge Summary Activity: routine, no sex for 6 weeks, no heavy lifting 4 weeks, no strenuous exercise Diet: routine Instructions: routine Additional instructions: [] Smoking cessation referral if applicable(refer to patient education folder for contact #) [] Refer to [facility] Booklet Call your doctor immediately for: * Fever > 100.5 * Heavy vaginal bleeding ( >1 pad per hour) * Severe persistent headache * Shortness of breath * Reddened, hot, painful area to leg or breast * Drainage or odor from incision. * Keep incision clean and dry at all times and follow doctor's instructions regarding bathing/showering - Follow up plan Follow up: ANABELL RICE MD [Staff Physician] - 6 Weeks Forms: [facility] Discharge Summary
[2020-11-13] MEDS ORDERED: medroxyPROGESTERone ACETATE 150 MG/ML SYRINGE IM ONE (12:48)
[2020-11-13 12:58] VITALS: BP 114/71
== END 2020-11-13 12:50 | disposition home or self-care (01) | DRG 775 ==
LOC: TRG 20:00 → APU 20:02 → TRG 20:54 → OBSVTOIN 20:54 → LD 20:54 → OB 11-12 04:33
PROVIDERS: ADMIT Obstetrics & Gynecology; ATTEND Obstetrics & Gynecology
PROC: 10E0XZZ Delivery of Products of Conception, External Approach (ICD-10-PCS; principal; 2020-11-12)
PROC: 3E0R3BZ Introduction of Anesthetic Agent into Spinal Canal, Percutaneous Approach (ICD-10-PCS; 2020-11-12)
PROC: 00HU33Z Insertion of Infusion Device into Spinal Canal, Percutaneous Approach (ICD-10-PCS; 2020-11-12)
PROC: 0HQ9XZZ Repair Perineum Skin, External Approach (ICD-10-PCS; 2020-11-12)
DX: O48.0 Post-term pregnancy (principal); Z3A.40 40 weeks gestation of pregnancy; Z37.0 Single live birth; O99.214 Obesity complicating childbirth; Z20.822 Contact with and (suspected) exposure to COVID-19; E66.01 Morbid (severe) obesity due to excess calories; O70.0 First degree perineal laceration during delivery; O99.02 Anemia complicating childbirth; D64.9 Anemia, unspecified
CPT/HCPCS: 36415; 59025; 85014; 85018; 85027; 86592; 86850; 86900; 86901; 96374; G0378; J1050; J3010; J7120; U0003